=== PATIENT | female | born 1990 | race Caucasian/White ===

== ENCOUNTER → 2016-12-12 | Outpatient (CLI) | payer MEDICAID ==
[~2016-12-12] MED LIST: LAN-O-SOOTHE7 GM TP; MOTRIN-DPS800 MG PO; PRENATAL VIT1 TAB PO
== END | disposition home or self-care (01) ==
LOC: RAD.S 13:30
DX: Z36 Encounter for antenatal screening of mother (principal); Z3A.26 26 weeks gestation of pregnancy

== ENCOUNTER 2017-02-03 07:04 | Inpatient (IN) | payer MEDICAID ==
[~2017-02-03] VITALS: Ht 149.9 cm; Wt 54.4 kg
--- NOTE | ~2017-02-03 | FD ---
ADMIT: 02/03/2017 RM/LOC: 218 [facility] MR#: [id number] [address] [address] SANDSSOCO EVANS [address] [place] [id number] Final Diagnosis SEX: F AGE: 26 : 1990 ADMISSION DATE: 02/03/2017 DISCHARGE DATE: 02/04/2017 FINAL DIAGNOSIS: 1. A 26-year-old 3 para 3-0-0-3 status post spontaneous vaginal delivery, breech delivery. 2. Precipitous delivery. 3. History of low-grade squamous intraepithelial lesion. PROCEDURE: Spontaneous vaginal delivery, breech. Aide Perales MD Resident / Gloria Aldrich MD / ping JOB #: [id number] CC: Gloria Aldrich MD, Attending Physician UNKNOWN, Family Physician
--- NOTE | 2017-02-04 20:57 | HP ---
ADMIT: 02/03/2017 RM/LOC: 218 [facility] MR#: [id number] [id number] [address] SHAVON SANTANASOCO [address] [place] [address] History and Physical SEX: F AGE: 26 : 1990 DATE OF SERVICE: CHIEF COMPLAINT: Contractions. HISTORY OF PRESENT ILLNESS: This is a 26-year-old, G3, P2-0-0-2 with intrauterine at 36 weeks 5 days via 29-week ultrasound, who presents to Labor and Delivery with chief complaint of contractions since 8 p.m. last night. At the time of presentation, the patient was found to be 10 cm dilated and breech presentation. With a concern for imminent delivery, she was transitioned to a labor room and admitted urgently. She denied leaking of fluid or vaginal bleeding at the time of presentation. She reported normal movement. complicated by: 1. Late care. 2. Breech presentation. 3. Low-grade squamous intraepithelial lesion with a plan for colposcopy after . 4. Language barrier, only speaking Kitche. No Botswanan. PAST MEDICAL HISTORY: Denies hypertension or diabetes. All medical care previously in [facility]. SOCIAL HISTORY: She is single. She denies alcohol use, tobacco use, recreational drug use. FAMILY HISTORY: Denies a family history of any medical diseases including heart disease, stroke, hypertension, or diabetes. She is taking vitamin and iron supplement. ALLERGIES: NO KNOWN MEDICAL ALLERGIES. PAST SURGICAL HISTORY: No surgical history. LABORATORY DATA: Blood type O positive. GBS negative. Direct antibody screen negative. Gonorrhea and chlamydia negative. HIV negative. One-hour glucose tolerance test 87. Hepatitis B negative. RPR negative. Rubella immune. Varicella immune. REVIEW OF SYSTEMS: She denies headache, changes in vision, chest pain, or shortness of breath. No nausea, vomiting, diarrhea, or constipation. PHYSICAL EXAMINATION: VITAL SIGNS: Blood pressure 111/86, pulse 77, respiratory rate 16, temperature afebrile, and saturating 97% on room air. GENERAL: She is alert and in acute distress. HEART: Regular rate and rhythm. LUNGS: Clear to auscultation. ABDOMEN: Gravid. Estimated weight is 2900 g. ADMIT: 02/03/2017 RM/LOC: 218 [facility] MR#: [id number] [address] [address] SOCO SANTOS [address] [place] [address] History and Physical SEX: F AGE: 26 : 1990 EXTREMITIES: No edema in bilateral lower extremities. PELVIC: heart rate at the time of presentation baseline is 140. Positive accelerations. No decelerations. Strip is not continuous. She is antonio every 2 minutes. Category one. ASSESSMENT AND PLAN: This is a 26-year-old, G3, P2-0-0-2 with intrauterine at 36 weeks and 5 days via 29-week ultrasound, who presented to Labor and Delivery and was found to have complete cervical dilation with breech presentation. 1. Triple Air Valve Tester called for but was unavailable prior to delivery. The patient was admitted, and staff was alerted with plan for breech extraction. Blood type O positive. 2. Group B streptococcus negative. No antibiotic prophylaxis. 3. Category 1 heart rate tracing. 4. Language barrier. We will attempt to contact [facility] university intern. 5. Maternal well being. She is doing well without pain medication. Plan for precipitous delivery. Dr. Aury Sue saw and evaluated the patient on the day of admission. Aide Perales MD Resident / Aury Sue MD / alfredo JOB #: [id number] CC: Gloria Aldrich, Attending Physician UNKNOWN, Family Physician
[2017-02-05] MEDS ORDERED: PRENATAL VIT1 TAB PO (10:41)
[2017-02-05] MEDS ORDERED: LAN-O-SOOTHE7 GM TP (10:42)
[2017-02-05] MEDS ORDERED: MOTRIN-DPS800 MG PO (10:42)
--- NOTE | 2017-03-10 14:45 | OR ---
ADMIT: 02/03/2017 RM/LOC: 218 [facility] MR#: [id number] [address] [address] SOCO SANTOS [address] [place] [address] Operative/Delivery Room Report SEX: F AGE: 26 : 1990 Corrected: 02/04/2017 0703 njv SURGERY DATE: 02/03/2017 SURGEON: Aury Sue MD PROCEDURE: Breech vaginal delivery. RESIDENT: Aide Perales MD Resident PREPROCEDURE DIAGNOSES: 1. Intrauterine at 36 weeks and 5 days in a 26-year-old, 3, para 2-0-0-2 dating by 29 week ultrasound. 2. Breech presentation. 3. Language barrier, only speaks Kisii. 4. Low-grade squamous intraepithelial lesion of cervix. POSTPROCEDURE DIAGNOSES: 1. A 26-year-old, 3, para 3-0-0-3 status post spontaneous vaginal delivery, breech at 36 weeks and 5 days. 2. Breech presentation. 3. Language barrier, only speaks Kisii. 4. Low-grade squamous intraepithelial lesion of cervix. ANESTHESIA: None. ESTIMATED BLOOD LOSS: 250 mL. COMPLICATIONS: Breech presentation, precipitous delivery, no other known complications. FINDINGS: This is a 26-year-old, G3, P3-0-0-3 female who gave to a viable female in breech presentation with a weight of 2680 g. score of 9 and 9. Normal placenta with 3-vessel cord. HOSPITAL COURSE AND PROCEDURE: A 26-year-old, G3, P2-0-0-2 with intrauterine at 36 weeks and 5 days via 29 week ultrasound, who presented to Labor and Delivery for contractions. Contractions started at 8 p.m. the night prior. At time of presentation, patient was found to have complete cervical dilation and breech presentation. Staff was notified immediately. Following admission, SROM occurred and patient began involuntary expulsive efforts. She was placed in a dorsal lithotomy position. The 's buttocks were brought to the perineum and delivered until the lower back was visible. Dinesh breech presentation was present. The legs delivered without assistance from the clinician. The patient continued expulsive efforts and the shoulder blades were brought to the perineum. With gentle traction on the posterior ADMIT: 02/03/2017 RM/LOC: 218 [facility] MR#: [id number] [address] [address] SOCO SANTOS [address] [place] [address] Operative/Delivery Room Report SEX: F AGE: 26 : 1990 superior iliac spine, the infant's head was delivered. The infant was vigorous and crying at time of delivery. Infant was handed to the mother. After 1 minute of delayed cord clamping, the cord was clamped and cut. Bulb suction was not performed. Infant was stimulated. Pitocin was administered per protocol. Placenta delivered rapidly after the . Cord blood was collected. Cord gas was not collected. The vagina and perineum were inspected for lacerations. No lacerations were found. At the completion of the procedure, infant and mother were stable in mother's room. Dr. Aury Sue was present for the entire delivery and procedure. Aide Perales MD Resident / Aury Sue MD / alfredo JOB #: [id number] CC: Gloria Aldrich, Attending Physician UNKNOWN, Family Physician Corrected: 02/04/2017 0703 kenny
--- NOTE | 2017-03-10 14:45 | OR ---
ADMIT: 02/03/2017 RM/LOC: 218 [facility] MR#: [id number] [address] SOCO SANTOS [address] [place] [address] Operative/Delivery Room Report SEX: F AGE: 26 : 1990 SURGERY DATE: 02/03/2017 SURGEON: Aury Sue MD PROCEDURE: Breech spontaneous vaginal delivery. OTHER PHYSICIANS IN ATTENDANCE: 1. Tayler Camilo MD. 2. Talisha Khoury MD. 3. Aide Perales MD Resident. PREOPERATIVE DIAGNOSES: 1. Intrauterine at 36 and 5/7th weeks' gestation. 2. Dinesh breech presentation. 3. Active labor, completely dilated. POSTOPERATIVE DIAGNOSES: 1. Intrauterine at 36 and 5/7th weeks' gestation. 2. Dinesh breech presentation. 3. Active labor, completely dilated. FINDINGS: Liveborn female , weight 5 pounds, 14 ounces. scores 9 at 1 minute, 9 at 5 minutes. ESTIMATED BLOOD LOSS: 250 mL. ANESTHESIA: None. COMPLICATIONS: Breech presentation. INDICATIONS FOR PROCEDURE: The patient is a 26-year-old 3, para 2-0-0- 2, who presented to Labor and Delivery at 36 and 5/7th weeks' gestation in active labor. It was noted that the patient was completely dilated with the breech at +2 station. After reviewing the risks and benefits, it was felt that the patient was too close to delivery to proceed with section, so decision was made to proceed with vaginal breech delivery. The patient was informed of the risks associated with vaginal breech delivery and agreed to proceed and was informed of these via historic interpreter. ADMIT: 02/03/2017 RM/LOC: 218 [facility] MR#: [id number] [id number] [address] SOCO SANTOS [address] [place] [address] Operative/Delivery Room Report SEX: F AGE: 26 : 1990 DESCRIPTION OF PROCEDURE: The patient was noted be complete with the breech at the perineum. The membranes spontaneously ruptured and clear fluid was noted. With the same contraction, the patient pushed, the 's breech delivered. The legs were flexed and delivered. The arms were swept forward and the chest delivered and the head was flexed and delivered without difficulty. The infant was dried and handed off to the mother's abdomen. The placenta then delivered spontaneously shortly after delivery. At this point, Pitocin was placed in IV bag to firm the uterus. The cervix was examined and was noted to be free of lacerations. The vaginal vault and perineum were examined and also noted to be free of lacerations. The patient tolerated the procedure well. All sponge and needle counts were correct. The patient and infant went to the recovery room in stable condition. Aury Sue MD/ alfredo JOB #: [id number] CC: Gloria Aldrich, Attending Physician UNKNOWN, Family Physician
== END 2017-02-04 14:30 | disposition home or self-care (01) | DRG 775 ==
LOC: BC 07:04 → 2LDRP 07:04 → BC 07:10 → 2LDRP 07:24 → BC 02-26 08:00
PROVIDERS: ADMIT Obstetrics & Gynecology
PROC: 10E0XZZ Delivery of Products of Conception, External Approach (ICD-10-PCS; principal; 2017-02-03)
DX: O60.14X0 Preterm labor third trimester with preterm delivery third trimester, not applicable or unspecified (principal); O32.1XX0 Maternal care for breech presentation, not applicable or unspecified; O75.89 Other specified complications of labor and delivery; R87.622 Low grade squamous intraepithelial lesion on cytologic smear of vagina (LGSIL); Z3A.36 36 weeks gestation of pregnancy; Z37.0 Single live birth